=== PATIENT | female | born 1955 | race Caucasian/White ===

== ENCOUNTER → 2016-10-27 | Outpatient (CLI) | payer OTHER ==
[~2016-10-27] MED LIST: ADVAIR; ASP325T PO; CARVEDILOL PO; CLPD75T PO; LIPITOR PO; METFORMIN PO; OMG1KC PO; PRD50T PO; RAMIPRIL; VENTOLIN
--- NOTE | 2016-10-27 10:08 | Diagnostic Imaging Report ---
PROCEDURE: US Gallbladder. TECHNIQUE: Multiple real-time grayscale images were obtained over the right upper quadrant in various projections. INDICATION: Right upper quadrant pain. FINDINGS: The visualized portions of the pancreas appear unremarkable. The liver parenchyma is hyperechoic and attenuates the ultrasound beam. The portal vein demonstrates hepatopetal flow. The gallbladder demonstrates no stones or wall thickening. No pericholecystic fluid. Sonographic Chua sign is reportedly negative. The CBD is 4 mm in caliber. The right kidney is 10.2 cm in length with no hydronephrosis or focal lesion. No fluid collection is demonstrated. IMPRESSION: Liver echogenicity may relate to fatty infiltration or hepatitis. Dictated by: Dictated on workstation # [id number]
== END ==
LOC: RAD 08:26
PROVIDERS: ATTEND Family Medicine
DX: R10.11 Right upper quadrant pain (principal)
CPT/HCPCS: 76705

== ENCOUNTER → 2017-01-12 | Outpatient (CLI) | payer OTHER ==
--- NOTE | 2017-01-13 08:42 | Diagnostic Imaging Report ---
Bilateral screening mammogram 2D views with tomosynthesis The current study was also evaluated with a Computer Aided Detection (CAD) system. Indication: Screening. No current complaints stated on the questionnaire. COMPARISON: 11/28/15. FINDINGS: The breasts are composed of scattered fibroglandular densities. No mass, architectural distortion or suspicious cluster of calcifications. Allowing for technique and positional differences, no suspicious change is seen. IMPRESSION: No significant change. ACR BI-RADS Category 2: Benign findings. Result letter will be mailed to the patient. Note: At least 10% of breast cancer is not imaged by mammography. Dictated by: Dictated on workstation # [id number]
== END ==
LOC: RAD 09:17
PROVIDERS: ATTEND Nurse Practitioner Family
DX: Z12.31 Encounter for screening mammogram for malignant neoplasm of breast (principal)
CPT/HCPCS: 77067

== ENCOUNTER 2017-07-19 14:53 | Emergency (ER) | payer OTHER ==
[~2017-07-19] VITALS: Ht 152.4 cm; Wt 77.1 kg
[2017-07-19] MEDS ORDERED: ONDANSETRON 4 MG (ZOFRAN) ORAL DISSOLVE TAB PO ONE (16:30)
[2017-07-19] MEDS ORDERED: MECLIZINE 25 MG (ANTIVERT) TAB PO ONE (16:45)
--- NOTE | 2017-07-19 16:51 | ED Fall/Injury ---
General Chief Complaint: Trauma-Non Activation Stated Complaint: HEAD PAIN FROM FALL Nursing Triage Note: ARRIVED VIA AMB TO TRIAGE. STATES APPX 1.5 HR AGO SHE FELL ON CONCRETE DUE TO ICE. COMPLAINS OF TAILBONE, HEAD,NECK PAIN. STATES SHE IS DIZZY AND HAS VOMITED. Source: patient Exam Limitations: no limitations History of Present Illness Date Seen by Provider: Jul 19, 2017 Time Seen by Provider: 16:50 Initial Comments To ER with reports of slipping on the ice, falling backwards and striking the back of her head. No loss consciousness. She complains of subsequent dizziness, headache, nausea and some low back pain. She is on a baby aspirin daily. Occurred: just prior to arrival Severity: moderate Injuries/Pain Location: head, back Associated Symptoms (Fall): Denies Symptoms Allergies and Home Medications Allergies Coded Allergies: No Known Drug Allergies (Unverified , 12/30/10) Home Medications Aspirin 325 Mg Tab, 325 MG PO DAILY, (Reported) Clopidogrel 75 Mg Tablet, 1 EACH PO DAILY, (Reported) Balsam 3 Polyunsat Fatty Acids 1,000 Mg Cap, 1,000 MG PO DAILY, (Reported) [Advair] , BID, (Reported) [Carvedilol] , 12.5 MG PO BID, (Reported) [Lipitor] , 80 MG PO DAILY, (Reported) [Metformin] , 100 MG PO BID, (Reported) [Ventolin] , NEEDED, (Reported) Constitutional: see HPI Eyes: No Symptoms Reported Ears, Nose, Mouth, Throat: no symptoms reported Respiratory: no symptoms reported Cardiovascular: no symptoms reported Genitourinary: no symptoms reported Musculoskeletal: no symptoms reported Skin: no symptoms reported Psychiatric/Neurological: No Symptoms Reported Past Xcifvuc-Jgkell-Qaezta Hx Patient Social History Alcohol Use: Denies Use Recreational Drug Use: No Smoking Status: Former Smoker Recent Foreign Travel: No Contact w/Someone Who Travel: No Recent Infectious Disease Expo: No Respiratory History of Respiratory Disorde: Yes Respiratory Disorders: Asthma, COPD Cardiovascular History of Cardiac Disorders: Yes Neurological History of Neurological Disord: No Gastrointestinal History of Gastrointestinal Di: No Musculoskeletal History of Musculoskeletal Dis: No Endocrine History of Endocrine Disorders: Yes Endocrine Disorders: Diabetes, Non-Insulin dep Cancer History of Cancer: No Psychosocial History of Psychiatric Problem: No Integumentary History of Skin or Integumenta: No Blood Transfusions History of Blood Disorders: No Physical Exam Vital Signs Vital Signs - First Documented 07/19/17 15:50 Temp 98.0 Pulse 69 Resp 18 B/P (MAP) 156/87 (110) Pulse Ox 95 Capillary Refill : Less Than 3 Seconds General Appearance: WD/WN, no apparent distress HEENT: PERRL/EOMI, normal ENT inspection, other (hematoma to the occiput) Neck: non-tender, full range of motion Respiratory: normal breath sounds, no respiratory distress, no accessory muscle use Gastrointestinal: normal bowel sounds, non tender, soft Extremities: normal range of motion, non-tender Neurologic/Psychiatric: alert, normal mood/affect, oriented x 3 Skin: normal color, warm/dry Moriarty Coma Score Best Eye Response: (4) Open Spontaneously Best Verbal Response: (5) Oriented Best Motor Response: (6) Obeys Commands Moriarty Total: 15 Progress/Results/Core Measures Results/Orders My Orders Orders - ISRAEL BONILLA APRN Ondansetron Oral Dissolve Tab (Zofran (07/19/17 16:30) Ct Head/Cervical Spine Wo (07/19/17 16:30) Ct Lumbar Spine Wo (07/19/17 16:33) Meclizine Tablet (Antivert Tablet) (07/19/17 16:45) Medications Given in ED Current Medications Medications Dose Ordered Sig/Jesus Route Start Time Stop Time Status Last Admin Dose Admin Meclizine HCl 25 mg ONCE ONCE PO 07/19/17 16:45 07/19/17 16:46 DC 07/19/17 16:56 25 MG Ondansetron HCl 8 mg ONCE ONCE PO 07/19/17 16:30 07/19/17 16:32 DC 07/19/17 16:55 8 MG Vital Signs/I&O Vital Sign - Last 12Hours 07/19/17 15:50 Temp 98.0 Pulse 69 Resp 18 B/P (MAP) 156/87 (110) Pulse Ox 95 Blood Pressure Mean: 110 Departure Communication (Admissions) Progress Notes 1802- there has been minimal improvement in the nausea with Zofran so I'll give her a prescription for Phenergan. Cervical collar removed at this time. Impression Impression: Primary Impression: Concussion Disposition: 01 HOME, SELF-CARE Condition: Stable Departure-Patient Inst. Decision time for Depature: 17:50 Referrals: KESHA VALERIO MD (PCP/Family) Primary Care Physician Patient Instructions: Concussion, Adult (DC) Add. Discharge Instructions: 1. Expect symptoms to persist for 3-5 days. The basis of recovery from this is physical and cognitive rest. All discharge instructions reviewed with patient and/or family. Voiced understanding. Scripts Promethazine HCl (Promethazine Tablet) 25 Mg Tablet 12.5-25 MG PO Q8H Y for NAUSEA/VOMITING, #10 TAB Prov: ISRAEL BONILLA APRN 07/19/17 ISRAEL BONILLA APRN Jul 19, 2017 16:51
--- NOTE | 2017-07-19 17:46 | Diagnostic Imaging Report ---
PROCEDURE: CT head and CT cervical spine without contrast. TECHNIQUE: Multiple contiguous axial images were obtained through the brain and cervical spine without the use of intravenous contrast. Sagittal and coronal reformations through the cervical spine were then performed. INDICATION: Hit head. Headache and neck pain. FINDINGS: The ventricles are normal in size, shape and position. There is no acute parenchymal hemorrhage, edema or mass. There is no extra-axial mass or hemorrhage. There is scalp edema in the posterior parietal region near the midline. No fracture is seen. There is normal height and alignment of the cervical vertebral bodies. There is disc space narrowing and spondylosis causing some bilateral foraminal narrowing at C5-6. No significant central canal encroachment is seen. There is no fracture or other acute abnormality. IMPRESSION: 1. CT of the head shows no acute intracranial abnormality. 2. CT of the cervical spine shows mild degenerative changes with no acute abnormality. Dictated by: Dictated on workstation # [id number]
--- NOTE | 2017-07-19 17:47 | Diagnostic Imaging Report ---
PROCEDURE: CT lumbar spine without contrast. TECHNIQUE: Multiple contiguous axial images were obtained through the lumbar spine without the use of intravenous contrast. Sagittal and coronal reformations were then performed. INDICATION: Fall, low back pain. FINDINGS: There is normal height and alignment of the lumbar vertebral bodies. Disc spaces are well maintained. No disc herniation or bony stenosis is evident at any level. There is only mild degenerative disc and facet disease seen. No fracture or other acute abnormality is seen. IMPRESSION: No acute abnormality is seen. Dictated by: Dictated on workstation # [id number]
[2017-07-19] MEDS ORDERED: PROM25TA14 PO (18:05)
[2017-07-19] MEDS ORDERED: PROMETHAZINE 25 MG (PHENERGAN) TAB PO ONE (18:15)
[2017-07-19 18:26] VITALS: BP 124/63
== END 2017-07-19 18:23 | disposition home or self-care (01) ==
LOC: EDUNIT# 14:53 → ER 14:55
DX: S06.0X9A Concussion with loss of consciousness of unspecified duration, initial encounter (principal); R40.2142 Coma scale, eyes open, spontaneous, at arrival to emergency department; R40.2252 Coma scale, best verbal response, oriented, at arrival to emergency department; R40.2362 Coma scale, best motor response, obeys commands, at arrival to emergency department; J44.9 Chronic obstructive pulmonary disease, unspecified; E11.9 Type 2 diabetes mellitus without complications; Z79.82 Long term (current) use of aspirin; Z79.84 Long term (current) use of oral hypoglycemic drugs; W01.10XA Fall on same level from slipping, tripping and stumbling with subsequent striking against unspecified object, initial encounter
CPT/HCPCS: 70450; 72125; 72131; 99283

== ENCOUNTER → 2019-01-03 | Outpatient (CLI) | payer OTHER ==
[~2019-01-03] MED LIST changes: +PROM25TA14 PO
--- NOTE | 2019-01-03 12:32 | Diagnostic Imaging Report ---
Indication: Routine screening. Comparison is made with prior mammogram 01/12/2017 and 11/28/2015. 2-D and 3-D bilateral screening mammography was performed with CAD. Scattered fibroglandular densities are identified bilaterally. No mass or malignant-appearing microcalcifications are seen. Axillae are unremarkable. Impression: BI-RADS category 1. No mammographic features suspicious for malignancy are identified. ACR BI-RADS Category 1: Negative. Result letter will be mailed to the patient. Note: At least 10% of breast cancer is not imaged by mammography. Dictated by: Dictated on workstation # [id number]
== END ==
LOC: RAD 10:05
PROVIDERS: ATTEND Nurse Practitioner Family
DX: Z12.31 Encounter for screening mammogram for malignant neoplasm of breast (principal)
CPT/HCPCS: 77067

== ENCOUNTER → 2019-09-29 | Outpatient (CLI) | payer OTHER ==
--- NOTE | 2019-09-29 15:29 | Diagnostic Imaging Report ---
INDICATION: Fall. Pain to the left 3rd and 4th fingers. EXAMINATION: Three views of the left hand. FINDINGS: There is no fracture or dislocation. Articulating surfaces are smooth throughout. No significant degenerative changes are seen. IMPRESSION: No bony abnormality demonstrated of the left hand. Report was called to nurse Mira for Sue Haas APRN at 3:23 p.m., by layla. Dictated by: Dictated on workstation # [id number]
--- NOTE | 2019-09-29 16:04 | Diagnostic Imaging Report ---
INDICATION: Fall with left upper extremity and neck pain. FINDINGS: AP, lateral, and odontoid views of the cervical spine are obtained. There is loss of cervical lordosis; however, vertebral body heights are maintained. There is narrowing of the C5-C6 disc space with associated endplate spurring indicating a chronic nature. Prevertebral soft tissues are unremarkable. There is no evidence of an acute fracture. IMPRESSION: Degenerative findings most pronounced at C5-C6 without acute abnormality detected. Report was called to Sue Haas APRN at 4:00 p.m., by layla. Dictated by: Dictated on workstation # [id number]
== END ==
LOC: LAB 14:45
PROVIDERS: ATTEND Nurse Practitioner Family
DX: S06.0X0A Concussion without loss of consciousness, initial encounter (principal); M47.812 Spondylosis without myelopathy or radiculopathy, cervical region; M79.642 Pain in left hand; I25.10 Atherosclerotic heart disease of native coronary artery without angina pectoris; J44.9 Chronic obstructive pulmonary disease, unspecified; E11.9 Type 2 diabetes mellitus without complications; I10 Essential (primary) hypertension; E78.49 Other hyperlipidemia; W10.8XXA Fall (on) (from) other stairs and steps, initial encounter
CPT/HCPCS: 72040; 73130

== ENCOUNTER → 2020-06-19 | Outpatient (CLI) | payer OTHER ==
--- NOTE | 2020-06-19 09:52 | Diagnostic Imaging Report ---
EXAMINATION: Digital mammogram bilateral screening with CAD. INDICATION: Screening. COMPARISON: This study was compared to the prior exams of 01/03/2019, 01/12/2017, and 11/28/2015. PERSONAL HISTORY: At this time, there are no current complaints. FINDINGS: There are scattered fibroglandular densities in both breasts which could obscure a lesion. Overall, there does not appear to have been any significant change when compared to the prior exam. No primary or secondary sign of malignancy is noted. IMPRESSION: There is no radiographic evidence for malignancy. ACR BI-RADS Category 1: Negative. Result letter will be mailed to the patient. Note: At least 10% of breast cancer is not imaged by mammography. Dictated by: Dictated on workstation # [id number]
--- NOTE | 2020-06-19 09:58 | Diagnostic Imaging Report ---
Clinical indication: Patient with right upper quadrant pain. EXAM: Right upper quadrant ultrasound. COMPARISON: Right upper quadrant ultrasound dated 10/27/2016. FINDINGS: The pancreas is unremarkable with normal configuration and echogenicity. Again noted slight increased diffuse hyperechogenicity throughout the liver which appears slightly improved compared to the prior study. The liver surface is smooth. The liver measures 16.9 cm in craniocaudal dimension. The main portal vein demonstrates hepatopetal flow. There is no liver mass seen. There is no intrahepatic or extra hepatic ductal dilation. Common bile duct measures 5.8 mm which is within normal limits for patient's age. The gallbladder shows no stones or sludge. There is no significant gallbladder wall thickening or pericholecystic fluid. There is no sonographic Chua sign. The visualized portions of IVC and abdominal aorta are unremarkable. The kidney shows no mass or hydronephrosis. The right kidney measures 9.5 cm in craniocaudal dimension. There is no abdominal ascites. IMPRESSION: 1: There is diffuse hyperechogenicity seen throughout the liver which may be related to diffuse fatty infiltration of the liver. These findings have improved compared to the prior study. 2: Otherwise, unremarkable right upper quadrant ultrasound. Dictated by: Dictated on workstation # [id number]
== END ==
LOC: RAD 08:40
PROVIDERS: ATTEND Family Medicine
DX: Z12.31 Encounter for screening mammogram for malignant neoplasm of breast (principal); R10.11 Right upper quadrant pain
CPT/HCPCS: 76705; 77063; 77067

== ENCOUNTER → 2020-11-09 | Outpatient (CLI) | payer OTHER ==
--- NOTE | 2020-11-09 12:36 | Diagnostic Imaging Report ---
Right shoulder at 10:42. Indication: Shoulder pain 3 views were obtained. There are no prior studies available for comparison. There is no fracture, dislocation or acute bony abnormality evident. There is mild degenerative disease of the glenohumeral joint and at least moderate degenerative disease of the acromioclavicular joint. The soft tissues are unremarkable. Impression: There is no evidence for an acute bony abnormality. Dictated by: Dictated on workstation # [id number]
== END ==
LOC: RAD 10:20
PROVIDERS: ATTEND Nurse Practitioner Family
DX: M25.511 Pain in right shoulder (principal)
CPT/HCPCS: 73030

== ENCOUNTER → 2020-11-27 | Outpatient (CLI) | payer OTHER ==
--- NOTE | 2020-11-27 14:36 | Diagnostic Imaging Report ---
MRI RT UPPER EXT JOINT W/O Technique: Multiplanar, multisequence MR imaging of the right shoulder was performed without contrast. Comparison: Right shoulder radiographs of 11/09/2020 Indication: Right shoulder pain. Findings: Rotator cuff: Full thickness tear of the anterior footprint of the supraspinatus extends over in AP length approximately 1 cm. The torn proximal stump is retracted less than 1 cm. The remainder of the supraspinatus is intact. Teres minor, infraspinatus and subscapularis are all intact. No rotator cuff muscle atrophy. Glenoid labrum: By non-arthrogram imaging, the glenoid labrum appears intact. No para-labral cyst. Long head of biceps: Long head of biceps is normally positioned within the bicipital groove. The intracapsular segment is intact. Bones and cartilage: Humeral head is normal in morphology without fracture or focal osseous lesion. No glenohumeral chondromalacia. Mild osteoarthritis of the AC joint does not have inferior projecting osteophytes. Soft tissues: No glenohumeral joint effusion. No MRI findings to suggest adhesive capsulitis. Fluid in subacromial and subdeltoid bursa is compatible with direct communication of this space with the glenohumeral joint from full-thickness rotator cuff tear. IMPRESSION: 1. Full-thickness tear in the anterior footprint of the supraspinatus. No associated tendon retraction or muscle atrophy. 2. Long head of biceps remains intact. 3. Mild osteoarthritis of the AC joint. Dictated by: Dictated on workstation # [id number]
== END ==
LOC: RAD 12:20
PROVIDERS: ATTEND Nurse Practitioner Family
DX: M75.121 Complete rotator cuff tear or rupture of right shoulder, not specified as traumatic (principal); M19.011 Primary osteoarthritis, right shoulder
CPT/HCPCS: 73221

== ENCOUNTER 2021-01-16 05:34 | Outpatient (CLI) | payer OTHER ==
[~2021-01-16] VITALS: Ht 152.4 cm; Wt 68.2 kg
[2021-01-16] MEDS ORDERED: METF-399 PO (10:19)
[2021-01-16] MEDS ORDERED: TRULICITY (10:19)
[2021-01-16] MEDS ORDERED: CARV12.53 PO (10:19)
[2021-01-16] MEDS ORDERED: RT-ALBUINH INH (10:19)
[2021-01-16] MEDS ORDERED: FISH1CAP15 PO (10:19)
[2021-01-16] MEDS ORDERED: ASPI-999 PO (10:19)
[2021-01-16] MEDS ORDERED: FLUT1DIS26 IH (10:19)
[2021-01-16] MEDS ORDERED: ROSU20TA2 PO (10:19)
== END 2021-01-16 10:21 | disposition home or self-care (01) ==
LOC: PREOP 05:34
PROVIDERS: ATTEND Orthopaedic Surgery
DX: Z01.818 Encounter for other preprocedural examination (principal)

== ENCOUNTER 2021-01-23 09:28 | Day surgery (SDC) | payer OTHER ==
--- NOTE | 2021-01-17 06:14 | HISTORY AND PHYSICAL ---
DATE OF SERVICE: DATE OF SURGERY: 01/23/2021 This will be for outpatient surgery on 01/23/2021 for right rotator cuff repair. HISTORY OF PRESENT ILLNESS: The patient is a 65-year-old right hand dominant female who reports progressively worsening right shoulder pain. She ultimately underwent an MRI, which reveals a small full thickness supraspinatus tear. Due to functional impairment and failure to improve with conservative measures, the patient elected to proceed with surgical intervention. REVIEW OF SYSTEMS: No chest pain, no shortness of breath, no dysuria. PAST MEDICAL HISTORY: COPD, diabetes mellitus, migraines, hyperlipidemia, hypertension, coronary artery disease. PAST SURGICAL HISTORY: Coronary artery bypass, section, carotid endarterectomy, left forearm ORIF. FAMILY HISTORY: Noncontributory. PRIMARY CARE PROVIDER: Dr. Falk. MEDICATIONS: Coreg, Advair, Trulicity, metformin, aspirin, rosuvastatin. ALLERGIES: CEPHALOSPORINS. SOCIAL HISTORY: The patient is a former smoker. Denies alcohol use. PHYSICAL EXAMINATION: GENERAL: The patient is well-developed, well-nourished, in no acute distress. HEENT: Normocephalic, atraumatic. Pupils are equal, round, reactive to light. Oropharynx is clear. NECK: Supple, with no lymphadenopathy. LUNGS: Clear to auscultation bilaterally. HEART: Regular rate and rhythm. ABDOMEN: Soft, nontender, nondistended. EXTREMITIES: The right shoulder shows active forward elevation of 160 degrees, external rotation of 60 degrees, internal rotation to T12. She has a positive Neer's and positive Snowden sign. She has weakness with resisted external rotation, mild tenderness over the acromioclavicular joint with no pain with cross-body adduction. IMPRESSION: Right shoulder supraspinatus tear. PLAN: Right shoulder arthroscopy with open rotator cuff repair. The risks, benefits, options, ramifications and recovery were discussed at length with the patient. She understands and wishes to proceed. Job ID: [id number] DocumentID: [id number] Dictated Date: 01/08/2021 13:04:10 Erector Operator Date: 01/08/2021 13:28:55 Dictated By: MITCHELL MICHELLE MD
[~2021-01-23] VITALS: Ht 152.4 cm; Wt 68.2 kg
[2021-01-23] VITALS (10 sets, daily range): BP systolic 103–146; BP diastolic 58–90
[~2021-01-23 09:28] MED LIST changes: +ASPI-999 PO; +CARV12.53 PO; +FISH1CAP15 PO; +FLUT1DIS26 IH; +METF-399 PO; +ROSU20TA2 PO; +RT-ALBUINH INH; +TRULICITY; +oxyCODONE/APAP 5/325MG (PERCOCET 5) TABLET PO PRN
[2021-01-23] MEDS ORDERED: BUPIVACAINE 0.25% 30 ML (SENSORCAINE) VIAL ONE (09:43)
[2021-01-23] MEDS ORDERED: morphine PF (DURAMORPH) 10 MG/10 ML AMP ONE (09:43)
[2021-01-23] MEDS ORDERED: ceFAZolin INJECTION 1,000 MG in WATER (STERILE) FOR INJECTION 10 ML IV ONE (09:45)
[2021-01-23] MEDS ORDERED: LIDOCAINE PF 2% 5 ML (XYLOCAINE) VIAL ONE (09:50)
[2021-01-23] MEDS ORDERED: NEOSTIGMINE 3 MG/3 ML VIAL ONE (09:50)
[2021-01-23] MEDS ORDERED: proPOfol 200 MG/20 ML (DIPRIVAN) VIAL IV ONE (09:50)
[2021-01-23] MEDS ORDERED: ONDANSETRON 4 MG/2 ML (SDV) Z0FRAN ONE (09:50)
[2021-01-23] MEDS ORDERED: GLYCOPYRROLATE 0.2 MG/ML (ROBINUL) 2 ML VIAL ONE (09:50)
[2021-01-23] MEDS ORDERED: ROCURONIUM 10 MG/ML 5 ML SYRINGE IV ONE (09:50)
[2021-01-23] MEDS ORDERED: fentaNYL INJ 100 MCG/2 ML AMP ONE (09:50)
[2021-01-23] MEDS ORDERED: MIDAZOLAM 2 MG/2 ML (VERSED) VIAL ONE ×2 (09:51→10:49)
[2021-01-23] MEDS: LACTATED RINGERS 1,000 ML IV PRN ×2 (10:14→12:00)
[2021-01-23] MEDS ORDERED: CLINDAMYCIN 600 MG/50 ML IVPB 50 ML IV ONE ×2 (10:47→10:55)
--- NOTE | 2021-01-23 10:56 | Progress Note-Pre Operative ---
Pre-Operative Progress Note H&P Reviewed The H&P was reviewed, patient examined and no changes noted. Date Seen by Provider: Jan 23, 2021 Time Seen by Provider: 10:45 Date H&P Reviewed: Jan 23, 2021 Time H&P Reviewed: 07:11 Pre-Operative Diagnosis: right rotator cuff tear MITCHELL MICHELLE MD Jan 23, 2021 10:56
--- NOTE | 2021-01-23 10:58 | Progress Note-Post Operative ---
Post-Operative Progess Note Surgeon (s)/Glost Placer (s) Surgeon MITCHELL MICHELLE MD Glost Placer: Vernon Connolly Pre-Operative Diagnosis right rotator cuff tear Post-Operative Diagnosis right rotator cuff and SLAP tears Procedure & Operative Findings Date of Procedure 01/23/21 Procedure Performed/Findings right shoulder arthroscopic acromioplasty, bicep tenotomy and open rotator cuff repair Anesthesia Type GETA Estimated Blood Loss Estimated blood loss (mL): minimal Specimens/Packing Specimens Removed none Packing: none MITCHELL MICHELLE MD Jan 23, 2021 10:58
[2021-01-23] MEDS ORDERED: fentaNYL INJ 100 MCG/2 ML AMP IVP ONE (12:15)
[2021-01-23] MEDS ORDERED: ONDANSETRON 4 MG/2 ML (SDV) Z0FRAN IVP PRN (12:15)
[2021-01-23] MEDS ORDERED: morphine INJ 10 MG/ML 1ML (SYR OR VIAL) IVP ONE (12:15)
[2021-01-23] MEDS ORDERED: MEPERIDINE (DEMEROL) INJ 50 MG/ML IVP ONE (12:15)
--- NOTE | 2021-01-23 13:51 | OPERATIVE REPORT ---
DATE OF SERVICE: 01/23/2021 PREOPERATIVE DIAGNOSIS: Right shoulder rotator cuff tear. POSTOPERATIVE DIAGNOSES: 1. Right shoulder rotator cuff tear. 2. Right shoulder SLAP tear. PROCEDURES PERFORMED: 1. Right shoulder open rotator cuff repair. 2. Right shoulder arthroscopic biceps tenotomy. 3. Right shoulder arthroscopic acromioplasty. SURGEON: Evin Michelle MD. HYDROGEOLOGY PROFESSOR: Vernon Connolly, who assisted throughout the procedure and closed the incisions. ANESTHESIA: General endotracheal by Vernon Rachel CRNA. ESTIMATED BLOOD LOSS: Minimal. DRAINS: None. COMPLICATIONS: None. POSTOPERATIVE PLAN: Passive range of motion and sling wear for four weeks. The patient was transferred to recovery room awake and stable condition. STATEMENT OF MEDICAL NECESSITY: The patient is a 65-year-old right hand dominant female with complaints of right shoulder pain and weakness. She underwent an MRI, which revealed evidence of a right supraspinatus tear. She tried rest, activity modifications and therapy without relief and due to functional impairment and failure to improve with conservative measures, the patient elected to proceed with surgical intervention. Examination under anesthesia revealed forward elevation of 160 degrees, external rotation of 80 degrees, and internal rotation of 70 degrees. Arthroscopic findings demonstrated a 1 x 1 cm full thickness supraspinatus tear, type 2 SLAP tear. There is no significant glenoid or humeral head articular wear. There was moderate bursitis with sloping of the anterolateral acromion in the subacromial space. DESCRIPTION OF PROCEDURE: After risks and benefits of the procedure were discussed and questions were answered, informed consent was signed and placed on the chart. The operative site was confirmed in the preoperative holding area initialed by the surgeon. The patient was then transferred to the operating room. After adequate levels of general endotracheal anesthetic were obtained, a timeout was called, confirming the operative site. Examination under anesthesia was performed with the above findings noted. The right shoulder and upper extremity were prepped and draped in the usual sterile fashion. Shoulder joint was injected with 20 mL fluid and a standard posterior portal was placed under direct visualization. An anterior portal was created in interval between the biceps, subscapularis and glenoid. The biceps anchor was released and the stump was debrided with a shaver. The scope was then redirected into the subacromial space. The lateral portal was created. A bursectomy was performed in the acromial plane to a flat type 1 acromion. The lateral incision was then extended. The deltoid was split in line with its fibers leaving attached to the acromion. The rotator cuff tear was mobilized and a single corkscrew anchor was placed in a modified Dale-Camacho and repair was obtained with excellent reapproximation obtained. No new tension with the arm at the side. The wound was copiously irrigated. The deltoid was closed with #2 FiberWire in a [id number] interrupted fashion. The wound was further irrigated, 3-0 Vicryl was used to reapproximate the subcutaneous tissue. The skin was closed with 4-0 nylon running alternating horizontal mattress fashion. The portal sites were closed with 4-0 nylon in a subcuticular fashion. A soft dressing and sling were applied and the patient was transferred to recovery room awake and in stable condition. Job ID: [id number] DocumentID: [id number] Dictated Date: 01/23/2021 11:52:51 Cover Marker Date: 01/23/2021 13:50:35 Dictated By: EVIN MICHELLE MD
== END 2021-01-23 14:30 | disposition home or self-care (01) ==
LOC: SDC 09:28
PROVIDERS: ATTEND Orthopaedic Surgery
DX: M75.101 Unspecified rotator cuff tear or rupture of right shoulder, not specified as traumatic (principal); S43.431A Superior glenoid labrum lesion of right shoulder, initial encounter; I10 Essential (primary) hypertension; I25.10 Atherosclerotic heart disease of native coronary artery without angina pectoris; J44.9 Chronic obstructive pulmonary disease, unspecified; E11.9 Type 2 diabetes mellitus without complications; E78.5 Hyperlipidemia, unspecified; G43.909 Migraine, unspecified, not intractable, without status migrainosus; Z79.51 Long term (current) use of inhaled steroids; Z79.899 Other long term (current) drug therapy; Z87.891 Personal history of nicotine dependence
CPT/HCPCS: 23410; 29822; 29826; 82947; 87081; C1713

== ENCOUNTER 2021-04-05 10:57 | Outpatient (RCR) | payer OTHER ==
--- NOTE | 2021-01-28 16:10 | Anesthesia-General Post-Op ---
General Significant Intra-Op Events Notes anesthesia postop addendum on 01-23-21 at 1300 Patient Condition Mental Status/LOC: Same as Preop Cardiovascular: Satisfactory Nausea/Vomiting: Absent Respiratory: Satisfactory Pain: Controlled Complications: Absent Post Op Complications Complications None Follow Up Care/Instructions Patient Instructions None needed. Anesthesia/Patient Condition Patient Condition Patient is doing well, no complaints, stable vital signs, no apparent adverse anesthesia problems. No complications reported per nursing. ALEXANDRIA PRESLEY CRNA Jan 28, 2021 16:10
[~2021-04-05 10:57] MED LIST changes: -oxyCODONE/APAP 5/325MG (PERCOCET 5) TABLET PO PRN
== END 2021-04-08 15:06 | disposition home or self-care (01) ==
PROVIDERS: ATTEND Orthopaedic Surgery
DX: M75.121 Complete rotator cuff tear or rupture of right shoulder, not specified as traumatic (principal); E11.9 Type 2 diabetes mellitus without complications; I10 Essential (primary) hypertension; J45.909 Unspecified asthma, uncomplicated; Z95.1 Presence of aortocoronary bypass graft

== ENCOUNTER 2021-06-06 14:21 | Outpatient (RCR) | payer MEDICARE, OTHER | END 2021-06-07 | disposition home or self-care (01) | PROVIDERS: ATTEND Orthopaedic Surgery | DX: M75.121 Complete rotator cuff tear or rupture of right shoulder, not specified as traumatic (principal); E11.9 Type 2 diabetes mellitus without complications; I10 Essential (primary) hypertension; J45.909 Unspecified asthma, uncomplicated; Z96.611 Presence of right artificial shoulder joint ==

== ENCOUNTER 2021-06-21 13:04 | Outpatient (RCR) | payer MEDICARE, OTHER | END 2021-06-21 14:23 | disposition home or self-care (01) | PROVIDERS: ATTEND Orthopaedic Surgery | DX: M75.121 Complete rotator cuff tear or rupture of right shoulder, not specified as traumatic (principal); E11.9 Type 2 diabetes mellitus without complications; I10 Essential (primary) hypertension; J45.909 Unspecified asthma, uncomplicated; Z96.611 Presence of right artificial shoulder joint; Z95.1 Presence of aortocoronary bypass graft ==

== ENCOUNTER → 2022-08-12 | Outpatient (CLI) | payer MEDICARE, OTHER ==
--- NOTE | 2022-08-12 17:05 | Diagnostic Imaging Report ---
INDICATION: COUGH, DYSPNEA ON EXERTION. COMPARISON: 07/07/2013. FINDINGS: Frontal and lateral views of the chest demonstrate normal heart size and pulmonary vascularity. Sternotomy wires are noted. The lungs are clear. There are no signs of infiltrate, pleural effusions, or pneumothoraces. The visualized osseous structures show no acute abnormalities. IMPRESSION: No acute process. No signs of infiltrates, effusions, or pneumothoraces. Dictated by: Dictated on workstation # [id number]
== END ==
LOC: RAD 12:18
PROVIDERS: ATTEND Family Medicine
DX: R05.9 Cough, unspecified (principal); R06.09 Other forms of dyspnea
CPT/HCPCS: 71046

== ENCOUNTER → 2022-08-26 | Outpatient (CLI) | payer MEDICARE, OTHER ==
[~2022-08-26] MED LIST changes: +RT-ALBUTEROL SULF 2.5 MG/3 ML PRE-MIX VIAL INH ONE
--- NOTE | 2022-08-26 11:44 | Diagnostic Imaging Report ---
INDICATION: 67-year-old asymptomatic postmenopausal female COMPARISON: None available FINDINGS: AP Spine L1-L4: [BMD (g/cm2): 1.018] [T-Score: -1.5] [Z-Score: 0.0] [BMD Previous: n/a] [BMD % Change: n/a] LT Hip Neck: [BMD (g/cm2): 0.728] [T-Score: -2.2] [Z-Score: -0.8] LT Hip Total: [BMD (g/cm2):0.883] [T-Score:-1.0] [Z-Score: 0.2] [BMD Previous: n/a] [BMD % Change: n/a] RT Hip Neck: [BMD (g/cm2):0.694] [T-Score:-2.5] [Z-Score:-1.0] RT Hip Total: [BMD (g/cm2):0.871] [T-score:-1.1] [Z-Score:0.1] [BMD Previous:n/a] [BMD % Change:n/a] *Indicates significant change from prior examination based on 95% confidence level. World Health Organization criteria for BMD interpretation classify patients as Normal (T-score at or above -1.0), Osteopenic (T-score between -1.0 and -2.5) or Osteoporotic (T-score at or below -2.5). LIMITATIONS AND MODIFICATION: None. FRACTURE RISK (FRAX SCORE): Not applicable. IMPRESSION: 1. Osteoporosis. 2. Baseline examination. 3. See below National Osteoporosis Foundation guidelines on when to potentially initiate pharmacologic therapy. Based on the National Osteoporosis Foundation Guidelines, pharmacologic treatment should be initiated in any of the following, unless clinical conditions suggest otherwise: * Any patient with prior fragility fracture of the hip or vertebrae. A spine fracture indicates 5X risk for subsequent spine fracture and 2X risk for subsequent hip fracture. * Osteoporosis (T-score <-2.5). * Postmenopausal women and men age 50 and older with low bone mass/osteopenia (T-score between -1.0 and -2.5) by DXA and 10-year major osteoporotic fracture greater than 20% or a 10-year probability of hip fracture greater than 3%. These fracture risks are supplied above in the FRAX score, if applicable. * Clinician judgement and/or patient preferences may indicate treatment for people with 10-year fracture probabilities above or below these levels. Dictated by: Dictated on workstation # [id number]
--- NOTE | 2022-08-26 15:22 | Diagnostic Imaging Report ---
EXAMINATION: 3D bilateral screening mammogram with CAD. INDICATION: Screening. COMPARISON: This study was compared to the prior exams of 06/19/2020 and 01/03/2019. PERSONAL HISTORY: At this time, there are no current complaints. FINDINGS: There are scattered fibroglandular densities in both breasts which could obscure a lesion. When compared to the previous study, there has been no significant change. There is no primary or secondary sign of malignancy noted. IMPRESSION: 1. There is no evidence for malignancy. 2. The patient should have her annual bilateral screening mammogram on schedule in August 2023. ACR BI-RADS Category 1: Negative. Result letter will be mailed to the patient. Note: At least 10% of breast cancer is not imaged by mammography. Dictated by: Dictated on workstation # [id number]
== END ==
LOC: RAD 08:26
PROVIDERS: ATTEND Family Medicine
DX: Z12.31 Encounter for screening mammogram for malignant neoplasm of breast (principal); M81.0 Age-related osteoporosis without current pathological fracture; R05.9 Cough, unspecified; Z87.891 Personal history of nicotine dependence; Z78.0 Asymptomatic menopausal state
CPT/HCPCS: 77063; 77067; 77080; 94060; 94726; 94729